=== PATIENT | male | born 1980 | race Caucasian/White ===

== ENCOUNTER 2018-01-06 16:48 | Emergency (ER) | payer MEDICAID ==
[~2018-01-06] VITALS: Ht 177.8 cm; Wt 111.8 kg
[2018-01-06] MEDS ORDERED: NALOXONE 0.4 MG/ML, 1ML ONE (16:57)
[2018-01-06 17:24] LABS: BASOPHILS # (AUTO) 0.06 x10^3/uL (0-0.1); BASOPHILS % (AUTO) 1 % (0-1); EOSINOPHILS # (AUTO) 0.27 x10^3/uL (0-0.4); EOSINOPHILS % (AUTO) 3 % (1-7); LYMPHOCYTES # (AUTO) 1.96 x10^3/uL (1-3.4); LYMPHOCYTES % (AUTO) 20 % (22-44); MD NO; MEAN CORPUSCULAR HEMOGLOBIN 30.7 pg (27.5-34.5); MEAN CORPUSCULAR HGB CONC 33.9 g/dL (33.2-36.2); MEAN CORPUSCULAR VOLUME 90.5 fL (81-97); MEAN PLATELET VOLUME 7.1 fL (7.4-10.4); MONOCYTES % (AUTO) 8 % (2-9); NEUTROPHILS # (AUTO) 6.96 x10^3/uL (1.8-6.8); NEUTROPHILS % (AUTO) 69 % (42-75); PLATELET COUNT 414 x10^3/uL (130-400); RED BLOOD COUNT 5.67 x10^6/uL (4.38-5.82); RED CELL DISTRIBUTION WIDTH 13.5 % (9.4-14.8)
[2018-01-06] MEDS: NALOXONE 0.4 MG/ML, 1ML IVPush PRN (17:28)
[2018-01-06 17:33] LABS: ALBUMIN 3.9 g/dL (3.4-5.0); ANION GAP 7 mmol/L (5-15); CALCIUM 8.9 mg/dL (8.5-10.1); CHLORIDE 108 mmol/L (98-107); CREATININE 1.02 mg/dL (0.7-1.3)
[2018-01-06 18:18] VITALS: BP 139/101
== END 2018-01-06 21:58 | disposition home or self-care (01) ==
LOC: ED 21:36
DX: S32.019A Unspecified fracture of first lumbar vertebra, initial encounter for closed fracture (principal); T40.2X1A Poisoning by other opioids, accidental (unintentional), initial encounter; V49.69XA Unspecified car occupant injured in collision with other motor vehicles in traffic accident, initial encounter; Y93.89 Activity, other specified; Y92.89 Other specified places as the place of occurrence of the external cause; Y99.8 Other external cause status
CPT/HCPCS: 70450; 71045; 72072; 72110; 72125; 72128; 72131; 80048; 82040; 82962; 85025; 93005; 96374; 99285; J2310

== ENCOUNTER 2019-08-07 11:05 | Outpatient (CLI) | payer MEDICAID | END 2019-08-07 23:59 | disposition home or self-care (01) | LOC: CFH 11:05 | PROVIDERS: ATTEND Internal Medicine | DX: Z02.9 Encounter for administrative examinations, unspecified (principal) ==